=== PATIENT | male | born 1975 | race Caucasian/White ===

== ENCOUNTER → 2021-08-17 09:58 | Outpatient (CLI) | payer BC, SELFPAY ==
--- NOTE | ~2021-08-17 | US_ITS ---
EXAMINATION: US soft tissue head and neck EXAM DATE: 08/17/2021 10:40 INDICATION: D17.0 - Benign lipomatous neoplasm of skin and subcutaneo... TECHNIQUE: Multiple grayscale and Doppler images of the symptomatic neck palpable abnormality were o btained (by a technologist who performed the scan) and subsequently reviewed. [facility]. FINDINGS: Scanning in the symptomatic region demonstrates focal subcutaneous circumscribed oval masslike region measuring 3.3 x 1.7 x 3.5 cm. This measured 2.6 x 1.2 x 2.3 cm on prior study, and then subsequently determined to be an encapsulated lipoma by MRI exam. IMPRESSION: 1. Increase in size of anterior neck mass consistent with an encapsulated lipoma. Reviewed, dictated and finalized at location B. [employer]NEY[employer] IMPRESSION: 1. Increase in size of anterior neck mass consistent with an encapsulated lipo ma.
--- NOTE | ~2021-08-17 | US_ITS ---
EXAMINATION: US soft tissue lower back EXAM DATE: 08/17/2021 10:40 INDICATION: R22.2 - Localized swelling, mass and lump, trunk. TECHNIQUE: Multiple grayscale and Doppler images of the back subcutaneous tissues were obtained (by a technologist who performed the scan) and subsequently reviewed. There is no prior study for compari son. FINDINGS: Scanning in the posterior paraspinal symptomatic region demonstrates lobular subcutaneous fat without any focal encapsulated lipoma identified. Please note that an unencapsulated lipomas can be difficul t to identify by any modality. There is no fluid collection or evidence of intramuscular abnormality. IMPRESSION: 1. Unremarkable ultrasound exam. Reviewed, dictated and finalized at location B. [employer] ASSISTANT
== END ==
PROVIDERS: PCP Family Medicine; Visit Provider Nurse Practitioner Family
DX: D17.0 Benign lipomatous neoplasm of skin and subcutaneous tissue of head, face and neck (principal)
CPT/HCPCS: 76536; 76705

== ENCOUNTER 2021-09-17 00:47 | Day surgery (SDC) | payer BC, SELFPAY ==
[2021-09-10 13:22] VITALS: BMI 29.7
--- NOTE | 2021-09-10 13:29 | PC.NURSE ---
Report to the Outpatient Waiting Room, entrance under the green pavilion located off [facility], at time 0900 on date 09/17/21. OR Time: 1100. - You will be asked a series of questions to screen for COVID 19 for your protection. - A mask is required within the hospital. - Only one visitor is allowed at this time. Preoperative COVID Testing Requirements: No COVID Test needed if: (proof is required; if not received patient will have Rapid Test prior to entry) - Patient has received COVID Vaccine at least 14 days prior to procedure date or - Patient has positive COVID test result within last 90 days of surgery date. COVID Test needed if above criteria is not met Patients may have clear liquids (water, carbonated beverages, clear teas, apple juice) until 3 hours prior to surgery with a maximum of 20 ounces. - No food from midnight until time of surgery Take the following medications with a SIP of water the morning of surgery: NONE Medications to discontinue per physician: N/A Date to take last dose: N/A Please no make-up, nail [place], hairspray, perfume, deodorant, or body powder the day of surgery. No jewelry (including any body piercings) or valuables the day of surgery, leave them at home. Please take a shower or bath the night before, or the morning of, surgery with an antibacterial soap. Wear comfortable, loose fitting clothing. - Jewelry must be removed prior to entering the operating room. Rings and piercings that are not removed may be cut off. - The hospital will not accept responsibility for valuables. - Please leave all valuables, including medications, at home the day of surgery. If you are going home after surgery, a licensed sweeper driver must drive you home. - NO public transportation without another adult. - We recommend that an adult stay with you for 24 hours following discharge. - We also recommend that you do not drive, make important decision, drink alcoholic beverages, or take any drugs that were not prescribed by your health care provider for at least 24 hours after your discharge time. Follow any additional instructions given to you from your surgeon. Telephone instructions given to PENNY RICHARD and asked if any additional questions and then verbalized understanding. Patient advised to call surgeon office or pre surgery nurse liaison [phone] if any additional questions.
[2021-09-17] VITALS (8 sets, daily range): BP systolic 123–145; BP diastolic 86–96; PULSE 77–107; RESP 12–17; TEMP 36.3–36.8; O2SAT 95–100
[2021-09-17] MEDS: LACTATED RINGERS 1,000 ML 30 ML IV CONT (13:40)
--- NOTE | 2021-09-17 13:47 | P.PNAN_ITS ---
Anes - Initial Pre Proc Eval Procedure: Operation Date: 09/17/21 15:00 Proposed Procedures p Excisional Biopsy of Neck Mass and Excisional Biopsy of Bilateral Lower Back Masses - Isis Arcos MD Date/Time: 09/17/21 13:47 Surgeon: Isis Arcos MD Pre Op Diagnosis: subcutaneous mass of neck and bilateral lower back Patient Data Age: 46 Gender: M Height: 1.7 m Weight: 86.18 kg Allergies Allergy/AdvReac Type Severity Reaction Status Date / Time Penicillins Allergy Mild Unknown Verified 09/17/21 13:35 Home Medications Medication Instructions Recorded Confirmed Type [id number] 1 tablet PO Q4-6H PRN 09/10/21 09/17/21 History [Excedrin Migraine] Patient hx anesthesia problems: post op nausea/vomiting Family hx anesthesia problems: none Results Review: All pre-operative results and documents have been reviewed as part of the pre-operative evaluation. [facility] Past Medical History Medical History Anxiety Asthma Migraines Palpable mass of neck Surgical History Surgical History History of arthroscopy of right shoulder (~2004) History of arthroscopy of right shoulder (~2002) History of nasal surgery (Unknown) History of surgery on arm 2002 (RIGHT ARM), 2004 (RIGHT ARM) Family History Family History Mother Tobacco abuse Grandparent Family history of heart disease in male family member before age 55 Unknown Breast cancer Father No problems noted. 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 Informed Consent: The patient's anesthetic plan and its attendant risks and benefits were discussed with the patient/family/POA. Questions were solicited and answers provided to the satisfaction of the patient/family/POA.
[2021-09-17] MEDS: SCOPOLAMINE 1.5 MG PATCH TRANSDERM (13:56)
--- NOTE | 2021-09-17 13:57 | WPDHPUPDATE1 ---
History and Physical Update Update Date/Time: 09/17/21 13:57 History and Physical has been reviewed, including an updated exam of the patient. There are NO changes in the patient's condition. Risks, benefits, and alternatives have been discussed and questions answered. Patient agrees to proceed with procedure.
[2021-09-17] MEDS: ceFAZolin 2 GM/D5W 50 ML 2 GM/50 ML BAG IVPB (14:16)
[2021-09-17] MEDS: BUPIVACAINE/EPINEPHRINE 0.5% 30 ML VIAL INFILTRATE (15:06)
--- NOTE | 2021-09-17 16:01 | W.PM.PROC2 ---
Procedure Note - Detailed Date of Procedure 09/17/21 Pre-op Diagnosis subcutaneous mass of neck and bilateral lower back Post-op Diagnosis same Procedure Performed Excisional biopsy bilateral lower back multi lobular lipoma, subcutaneous lipoma anterior neck Surgeon Isis Arcos MD Anesthesia general Indications 46 y/o male with enlarging mass on his anterior neck was consistent with lipoma. Patient complain occasional dysphagia and shortness of breath. Patient also with bilateral lower back flank masses causing nerve pain left greater than right. Findings Multi lobular lipoma bilateral lower back flank, well encapsulated lipoma anterior neck Description of Procedure The patient was taken to the operating room placed in the prone position. After adequate induction of general anesthesia, the patient was prepped and draped in the normal sterile fashion. A time-out was then done to verify the patient's identity as well as the procedure being performed. I began by making an incision over the left flank mass. This incision was carried down through the dermis into the subcutaneous tissue. A large multi lobular lipoma was noted to encompass the entirety of the subcutaneous tissue. This extended down to the level of the fascia and hip bone. This area measured approximately 6 x 5 x 5 cm. Using careful dissection and excision, I was able to excise this multi lobular lipoma. This was sent to pathology for further review. I then gained hemostasis with the Bovie cautery and the cavity was washed out with normal saline. I then closed the subcutaneous tissue with a running 3-0 Vicryl stitch. The skin was closed with 4-0 Monocryl subcuticular suture and Dermabond was placed on the wound. I then repeated the procedure in the right flank and again a large multi lobular lipoma was noted. The area was not quite as large as the contralateral side and measured 4 x 4 x 5 cm. Once this area was completely excised, again gained hemostasis with the Bovie cautery and washed the cavity out with normal saline. Incision was again closed in 2 layers and Dermabond was placed. We then placed the patient in the supine position and prepped the neck in normal sterile fashion. I then made an incision over the mass in the anterior neck. A well encapsulated lipoma was encountered in the subcutaneous tissue. This extended down to the platysma but not extending through the platysma. This area measured approximately 3 x 3 cm. Went ahead and excised this in full and will be sent to pathology for further review. Hemostasis was gained with the Bovie cautery and the cavity was washed out with normal saline. This incision was closed with 2 layers once again and Dermabond was placed on the wound. The patient tolerated these procedures well and was extubated in the operating room postoperative. He will be sent to the recovery room in stable condition. Estimated Blood Loss 50 Drains No Packing No Pathology yes Complications No immediate complications Condition stable Disposition PACU
[2021-09-17] MEDS: fentaNYL CITRATE INJ (*CRX) 100 MCG/2 ML VIAL 25 MCG IV PUSH ×4 (16:45→16:55)
[2021-09-17] MEDS: oxyCODONE HCL (*CRX) 5 MG TAB IR PO (17:38)
== END 2021-09-17 18:00 | disposition home or self-care (01) ==
PROVIDERS: PCP Family Medicine; Visit Provider Surgery
PROC: (CPT 21552; principal; 2021-09-17 15:00)
DX: D17.0 Benign lipomatous neoplasm of skin and subcutaneous tissue of head, face and neck (principal); D17.1 Benign lipomatous neoplasm of skin and subcutaneous tissue of trunk
CPT/HCPCS: 21552; 21931 ×2; 88304; A9270; J0690; J1100; J2250; J2405; J2704; J3010; J7120